=== PATIENT | male | born 1960 | race Caucasian/White ===

== ENCOUNTER → 2021-09-20 | Outpatient (CLI) | payer OTHER ==
[2016-01-17 18:08] VITALS: BP 158/92
[~2021-09-20] MED LIST: ASPI-630 PO; ATOR10TA PO; FENO48TA16 PO; METO25TA4 PO; MULT-208 PO; NITR0.4T22 SL; TICA90TA PO
--- NOTE | 2021-09-20 14:09 | RAD ---
CLINICAL HISTORY: Reason: RT TESTICULAR SWELLING AND LUMP, HX OF HYDROCELE / Spl. Instructions: / Nv story: COMPARISON: None available. TECHNIQUE: Ultrasound images of the scrotum was performed with reddy-scale and color doppler. FINDINGS: Right testis measures 5.7 x 4.1 x 3.3 cm. Left testis measures 1.5 x 3.6 x 3 cm. Flow seen to both te stes. The right testis is mildly displaced and may be related to large multiloculated epididymal cyst or la rge hydrocele. Small left hydrocele. The bilateral testes are homogenous in echotexture without discrete mass. IMPRESSION: 1. The right testis is displaced by large right multiloculated epididymal cyst or large right hydroc conner. 2. No evidence for testicular mass or torsion. Electronically signed by: Suresh Padilla MD (09/20/2021 2:07 PM) [id number]
== END ==
LOC: US 08:51
PROVIDERS: ATTEND Family Medicine
DX: N50.3 Cyst of epididymis (principal); N43.3 Hydrocele, unspecified; R19.00 Intra-abdominal and pelvic swelling, mass and lump, unspecified site
CPT/HCPCS: 76870